=== PATIENT | male | born 1950 | race African-American/Black ===

== ENCOUNTER 2019-04-16 13:16 | Inpatient (IN) | payer OTHER ==
[~2019-04-16] VITALS: Ht 177.8 cm; Wt 64.0 kg
--- NOTE | 2019-04-16 13:16 | NUR ---
PT BIB [facility] DUE TO BLEEDING/LEAKING POSSIBLE DISLODGED PEG TUBE LOCATED TO LUQ OF ABD. PT SENT FOR EVAL FROM [facility]. UPON ARRIVAL PT AAOX3 CONFUSED TO TIME FOLLOWS ALL COMMANDS SLOW TO RESPOND, PER MEDICS AND FACILITY THIS IS NORMAL ORIENTATION AND MENTATION FOR PT. UPON VISUAL ASSESSMENT DRY BLOOD NOTED TO PEG TUBE AREA NO LEAKAGE, PT HAS BRUISING TO L EYE PER PT HE HAD L EYE BIOPSY. PT IS WEARING DIAPER FROM FACILITY SKIN INTACT NO OPEN WOUNDS NOTED. PT GOWNED PLACED ON FULL CM SINUS TACH VSS IV TO L FOREARM ESTABLISHED WITH [facility] EXTENDED 22G SALINE LOCK FLUSHED WITH NO PROBLEM. PT ALSO HAS PICC LINE TO R UPPER ARM INVESTMENT ACCOUNTANT TO ED FLUSHED WITH NO PROBLEM. AWAITING MD EVLYNNETTE AND ORDERS WILL MONITOR.
--- NOTE | 2019-04-16 13:20 | NUR ---
PTS DIAPER REMOVED PERICARE PROVIDED DUE TO WET DIAPER
--- NOTE | 2019-04-16 13:40 | NUR ---
EKG IN PROGRESS. MSE COMPLETED BY DR STAFFORD
[2019-04-16 14:27] LABS: PLATELET COUNT 249 x10^3mcL (130-400); RED CELL DISTRIBUTION WIDTH 14.3 % (11.5-14.5)
--- NOTE | 2019-04-16 14:28 | NUR ---
PT SLEEPING RESTING IN NO DISTRESS REMAINS ON FULL CM PTS BP OF 81/60 REPORTED TO ER MD. AWAITING FURTHER ORDERS
[2019-04-16 15:01] LABS: BAND NEUTROPHIL 9 % (0-10); METAMYELOCTE 2 % (0-2); MONOCYTE 6 % (0-7); SEGMENTED NEUTROPHILS 81 % (37-75)
[2019-04-16 15:03] LABS: PLATELET MORPHOLOGY PLATELETS NORMAL; rbc morphology (normal/abnorm) ABNORMAL (NORMAL)
--- NOTE | 2019-04-16 15:22 | NUR ---
LAB AT BEDSIDE FOR BLOOD CULTURE BLOOD DRAW
--- NOTE | 2019-04-16 15:59 | NUR ---
PT RESTING COMFORTABLY WARM BLANKET PROVIDED PER PTS REQUEST. WILL CONTINUE TO MONITOR VSS SINUS TACH ON CM
--- NOTE | 2019-04-16 16:07 | NUR ---
SPOKE TO PTS SISTER REGARDING PTS STATUS OK PER PT. SISTER LEFT HER NUMBER [phone] ALSO SISTER MARY CALLED HER NUMBER IS [phone]
[2019-04-16] MEDS ORDERED: ASPIR LOW81 MG PO (16:11)
[2019-04-16] MEDS ORDERED: NOR5 PO (16:12)
[2019-04-16] MEDS ORDERED: METFORMIN HCL500 MG PO (16:12)
[2019-04-16] MEDS ORDERED: METHADONE HCL5 MG PO (16:12)
[2019-04-16] MEDS ORDERED: GLIPIZIDE10 M2 PO (16:12)
[2019-04-16] MEDS ORDERED: BENAZEPRIL HYDR20 M1 PO (16:12)
[2019-04-16 16:13] LABS: CALCIUM 9.2 mg/dL (8.5-10.1); CARBON DIOXIDE 28.1 mmol/L (21-32); CHLORIDE SERUM 102 mmol/L (98-107); CREATININE SERUM 0.9 mg/dL (0.7-1.3); GFR1 > 60 mL/min; GLUCOSE SERUM 125 mg/dL (74-106); POTASSIUM SERUM 3.9 mmol/L (3.5-5.1); SODIUM SERUM 138 mmol/L (136-145)
[2019-04-16] MEDS ORDERED: ATORVASTATIN CA40 M1 PO (16:13)
[2019-04-16] MEDS ORDERED: NORCO1 TA2 PO (16:13)
[2019-04-16] MEDS ORDERED: STOOL SOFTENER100 MG PO (16:14)
[2019-04-16 16:18] LABS: ALKALINE PHOSPHATASE 74 U/L (46-116); ALT/SGPT 18 U/L (16-63); AST/SGOT 17 U/L (15-37); BILIRUBIN TOTAL 0.5 mg/dL (0.20-1.00)
[2019-04-16 16:20] LABS: ALBUMIN 2.6 g/dL (3.4-5.0); TOTAL PROTEIN, SERUM 6.1 g/dL (6.4-8.2)
--- NOTE | 2019-04-16 16:35 | NUR ---
PT TRANSPORTED TO TELE FLOOR VIA GURNEY ON PORTABLE CM NO DISTRESS PICC LINE PATENT IV SITE PATENT. TRANSPORTED BY VICKEY LOBO AND PAUL BAIRES. JAMI LOBO RESUMING CARE OF PT
[2019-04-16 17:11] VITALS: BP 99/69
--- NOTE | 2019-04-16 17:34 | NUR ---
RECEIVED PT FROM ER. PT ADMIT FOR INFECTED G TUBE. SEPSIS, PT IS A/O X3, VERY FORGETFUL BUT ABLE TO ANSWER MOST QUESTIONS AND FOLLOW COMMAND. LEFT EYE BLIND RIGHT EYE MINIMAL VISION. YAVAPAI-APACHE BOTH EARS. RIGHT FACIAL MUSCAL CONTRACED. SLURRED SPEECH. LUNG SOUND CLEAR BILATERAL, NO COUGH, NO SOB, PO2 100% 2L/MIN O2 VIA NC. PT IS ON TELE 16, ST, DENY ANY CHEST PAIN OR DISCOMFORT, BOWEL SOUND PRESENT ALL 4 QUADRANTS, NO DISTENTION, NO TENDER. PT HAS G TUBE, THERE ARE DRY DRAINAGE RESIDUAL AROUND THE G TUBE BUT NO ACITVE DRAINAGE NOTED AT THIS MOMENT, PEDLA PULSE PRESENT BOTH FEET, NO EDEMA, IV AT LEFT FA, AND PICC LINE AT RIGHT UPPER ARM, ALL ADLS ASSIST, ALL NEED MET, CALL LIGHT IN REACH, WILL CONTINUE TO MONITOR.
--- NOTE | 2019-04-16 18:00 | NUR ---
RECEIVED REPORT ASSUMING PT CARE RESPONSABILITY.
--- NOTE | 2019-04-16 18:47 | NUR ---
PT RESTING AT THIS TIME. NOTED IV TO LFA INFILTRATED. STOPPED IV. RESOURCE NURSE ASKED TO INSERT NEW IV AT THIS TIME. NO ORDER TO ACCESS PICC LINE AT THIS TIME.
--- NOTE | 2019-04-16 19:45 | NUR ---
RECEIVED AWAKE IN BED ALERT AND ORIENTEDX3 BUT FORGEFUL. BLIND LEFT EYE WITH ECCHYMOSIS, RIGHT EYE WITH LIMITED VISION. NOTED WITH SLURRED SPEECH/RIGHT FACIAK MUSCLE CONTRACTED. NON-BLANCHABLE ERYTHEMA ON THE COCYGEAL AREA, OPTIFOAM DRESSING INTACT. GT SITE WITH DRY DRAIANGE RESIDUAL, GT SITE CLEANSED JEREMY NS AND APPLIED DTAIANGE SPONGE . PLACED CALL LIGHT WITHIN REACH. INSTRUCTED TO CALL FOR ANY ASSISTANCE NEEDED AND VERBALIZED UNDERSTANDING.
--- NOTE | 2019-04-16 21:00 | NUR ---
VANCOMYCI 1GM IVPB GIVEN ORDERED WITHOUT ADVERSE REACTION NOTED. REPOSITIONED FOR COMFORT. BUTH HEELS OFFLOAD BY PLACING PILLOWS UNDER CALF/HEELS, PT UNCOOPERATIVE, KEEPS ON REMOVING EQUIPMENT FOR OFFLUADING.
[2019-04-16 21:03] VITALS: BP 114/64
--- NOTE | 2019-04-17 00:01 | NUR ---
DUE ATB IVPB GIVEN VIA PERIPHERAL LINE. NO ADVERSE REACTION NOTED. WILL CONTINUE TO MONITOR.
[2019-04-17 05:42] VITALS: BP 123/70
[2019-04-17 06:18] LABS: PLATELET COUNT 213 x10^3mcL (130-400)
[2019-04-17 06:22] LABS: CALCIUM 9.5 mg/dL (8.5-10.1); CARBON DIOXIDE 27.5 mmol/L (21-32); CHLORIDE SERUM 104 mmol/L (98-107); CREATININE SERUM 0.8 mg/dL (0.7-1.3); GFR1 > 60 mL/min; GLUCOSE SERUM 131 mg/dL (74-106); POTASSIUM SERUM 5.1 mmol/L (3.5-5.1); SODIUM SERUM 137 mmol/L (136-145)
--- NOTE | 2019-04-17 07:00 | NUR ---
NO ADVERSE REACTION NOTED FROMA TB THERAPY. ALL NEEDS ATTENDED.
[2019-04-17 07:48] LABS: RED CELL DISTRIBUTION WIDTH 14.6 % (11.5-14.5)
[2019-04-17 08:15] VITALS: BP 121/78
--- NOTE | 2019-04-17 08:45 | NUR ---
NOTED NEW ORDER FOR CHUY FROM DOCTOR SOSA'S ORDER.
--- NOTE | 2019-04-17 08:49 | NUR ---
SPOKE TO SLEEP SCIENTIST LLUVIA STATED THAT TO HOLD ALL MEDS GIVEN VIA G TUBE UNTIL IT IS CLEARED TO USE BY DOCTOR SOSA.
--- NOTE | 2019-04-17 09:00 | NUR ---
G TUBE REMOVED BY DOCTOR SOSA AT BEDSIDE ASSISTED BY INTERNAL AUDIT CONSULTANT JANE, NOTED WITH ERYTHEMA TO SITE, PHOTO TAKEN, DRSG APPLIED.
--- NOTE | 2019-04-17 09:30 | NUR ---
PATIENT AGREED TO HAVE NGT PLACEMENT INSERTION. NGT( ENTERIC FEEDING) INSERTED TO RIGHT NARE BY DOCTOR SOSA AT BEDSIDE. NO ANY DISTRESS NOTED.
--- NOTE | 2019-04-17 10:05 | NUR ---
AWAITING FOR KUB FOR NGT PLACEMENT CONFIRMATION.
[2019-04-17 10:55] LABS: BAND NEUTROPHIL 1 % (0-10); MONOCYTE 3 % (0-7); SEGMENTED NEUTROPHILS 91 % (37-75)
[2019-04-17 10:56] LABS: PLATELET MORPHOLOGY PLATELETS DECREASED; rbc morphology (normal/abnorm) ABNORMAL (NORMAL)
--- NOTE | 2019-04-17 11:19 | NUR ---
NOTED KUB RESULT FOR NGT PLACEMENT SHOWS FEEDING TIP IS IN THE DISTAL OF ESOPHAGUS. CHARGE PAULINE MADE AWARE STATED WILL NOTIFY DOCTOR IAN.
[2019-04-17 13:26] VITALS: BP 136/86
--- NOTE | 2019-04-17 14:35 | NUR ---
NGT ADVANCED 10CM BY CHARGE PAULINE PER DOCTOR SOSA'S ORDER. AWAITING FOR KUB RESULT.
--- NOTE | 2019-04-17 15:03 | NUR ---
[place] CATH INSERTED BY LICENSED INSURANCE SALES AGENT ASSISTED BY INSTRUCTOR. URINE SPECIMEN SENT TO LABS.
--- NOTE | 2019-04-17 15:06 | NUR ---
KUB FOR NGT PLACEMENT PENDING RESULT.
[2019-04-17 15:21] LABS: UA SPECIFIC GRAVITY >=1.030 (1.005-1.035); microscopic required? YES; urine erythrocyte TRACE (NEGATIVE)
--- NOTE | 2019-04-17 15:38 | NUR ---
WOUND CARE NOTE: SKIN ASSESSMENT TO S/P SURGICAL WOUND (OLD GT SITE) WITH 0.8X0.8XO.2CM, WOUND BED 100% GRANULATING TISSUE MOIST, NO ODOR DARYA-WOUND SKIN INTACT. SACRALCOCCYX OLD HEALED SCARS. RECOMMENDATIONS: -CLEANSE MID ABDOMINAL SURGICAL SITE WITH NS, PAT DRY AND APPLY DRY DRESSING QD AND PRN IF SOILING. -APPLY OPTIFORM TO SACRALCOCCYX Q3 DAYS AND PRN PREVENTION. -OFFLOAD BILATERAL HEELS BY PLACING PILLOWS UNDER CALVES UNLESS OTHERWISE CONTRAINDICATED -PRESSURE REDISTRIBUTION SURFACE THERAPY -TURN AND REPOSITION Q2H, OFFLOAD SACRALCOCCYX BY TURNING RIGHT AND LEFT -CONTINUE TO FOLLOW RD RECOMMENDATIONS ALL ABOVE RECOMMENDATIONS DISCUSSED WITH PRIMARY RN. PLEASE CONTACT WOUND CARE NURSE FOR ANY QUESTION AND CHANGE OF WOUND CONDITION.
[2019-04-17 16:31] VITALS: BP 100/66
[2019-04-17 17:17] VITALS: Ht 177.8 cm; Wt 64.0 kg
--- NOTE | 2019-04-17 17:18 | NUR ---
REMOVED STYLET FROM NG TUBE SMOOTHLY WITHOUT ANY RESISTANCE, PATIENT TOLERATED WELL WITH PROCEDURE.
--- NOTE | 2019-04-17 18:30 | NUR ---
CONSENT FOR ESOPHAGOGASTRODUODENOSCOPY WITH PEG SIGNED BY PATIENT'S SISTER (VIRGILIO ARROYO) WHO IS AWAKE,ALERT, ORIENTED X4. PATIENT IS UNABLE TO SIGN DUE TO HIS BLINDNESS TO LEFT EYE AND POOR VISION TO RIGHT EYE.
--- NOTE | 2019-04-17 18:57 | NUR ---
[facility] 12., OK TO GIVE VANCO 1GM IV AT 20:00PM TONIGHT PER PHARMACY. WILL ENDORSE TO INCOMING SHIFT.
--- NOTE | 2019-04-17 19:34 | NUR ---
REVEIVED PT WITH HOB ELEVATED AT 30 DEGREES, NGT TO RIGHT NARES INTACT AND PATENT FOR MEDICATIONS, SKIN WARM AND DRY TO TOUCH.ON 02 AT 2L/NC SATURATING AT 100%, DENIES ANY PAIN/DISCOMFORT ATTHIS TIME. CALL LIGHT WITHIN REACH, PT WAS INSTRUCTED TO CALL FOR ANY ASSISTANCE NEEDED.
[2019-04-17 20:53] VITALS: BP 110/69
--- NOTE | 2019-04-18 | NUR ---
ABLE TO TAKE A NAP AT SHORT INTERVALS, DENIES ANY PAIN/DISOCMFORT.
--- NOTE | 2019-04-18 02:00 | NUR ---
DR JAKE CARNES PT WITH ORDER TO DO CT SCAN OF ABDOMEN/PELVIS WITH AND WITHOUT CONTRAST. REMAINS ON NPO EXCEPT MEDICATIONS.
[2019-04-18 05:27] VITALS: BP 96/58
--- NOTE | 2019-04-18 05:28 | NUR ---
ALL DUE MEDICATIONS GIVEN VIA NGT TOLERATING WELL. NO ADVERSE REACTION NOTED. KEPT CLEAN AND DRY. FOR CT SCAN OF ABD/PELVIS R/O ABSCESS PER DR JOSEPH. ALL NEEDS ATTENDED.
[2019-04-18 06:01] LABS: PLATELET COUNT 196 x10^3mcL (130-400); RED CELL DISTRIBUTION WIDTH 13.3 % (11.5-14.5)
[2019-04-18 06:37] LABS: CALCIUM 9.2 mg/dL (8.5-10.1); CARBON DIOXIDE 28.2 mmol/L (21-32); CHLORIDE SERUM 104 mmol/L (98-107); GFR1 > 60 mL/min; GLUCOSE SERUM 106 mg/dL (74-106); POTASSIUM SERUM 4.6 mmol/L (3.5-5.1); SODIUM SERUM 137 mmol/L (136-145)
--- NOTE | 2019-04-18 07:30 | NUR ---
RECEIVED PT FROM VOCATIONAL INSTRUCTOR RN. Donta/BECKA. TELE#16. DENIES CHEST PAIN/PRESSURE. RESPIRATONS EQUAL AND UNLABORED ON 2L NC. DENIES SOB AT THIS TIME. NGT TUBE TO RT NARES SECURED TO NOSE, CLAMPED AT THIS TIME. PT DENIES ANY PAIN AT THIS TIME. [place] CATHETER SECURED TO RT THIGH DRAINING CLEAR YELLOW URINE TO GRAVITY. IV PATENT AND INFUSING TO LW. NO REDNESS OR SWELLING NOTED. WILL CONTINUE TO MONITOR. CALL LIGHT IN REACH. BED IN LOWEST POSITION.
--- NOTE | 2019-04-18 08:31 | NUR ---
SPOKE WITH ROSARIO FROM CT. PT WILL BE TAKEN OFF FLOOR FOR CT OF ABDOMEN AT 1000.
[2019-04-18 08:39] VITALS: BP 107/68
--- NOTE | 2019-04-18 09:20 | NUR ---
PT SITTING UP IN BED RESTING. NO ACUTE RESP DISTRESS NOTED 2L NC. NO ACUTE RESP DISTRESS NOTED. NGT SECURED TO RT NARES, NO RESIDUAL VOLUME NOTED. MEDICATIONS ADMINISTED VIA GRAVITY. PT TOLERATED WELL. IV TO LAC FLUSHED WELL. IV ANTIBIOTICS INFUSING ORDERED. DR. SOSA AT BEDSIDE. PER DR. SOSA OKAY TO START TUBE FEEDINGS AT LUNCH. PER DR. SOSA EGD WITH PEG WILL BE DONE TOMORROW. WILL CONTINUE TO MONITOR. CALL LIGHT IN REACH. BED IN LOWEST POSITION.
--- NOTE | 2019-04-18 09:45 | NUR ---
PT IN BED RESTING. NO ACUTE RESP DISTRESS NOTED ON 2L NC. PT DENIES ANY SOB AT THIS TIME. GIVEN PO MEDS. TOLERATED WELL. PT DENIES N/V AT THIS TIME. PT DENIES AN PAIN AT THIS TIME. IV SALINE LOCKED TO RH. NO REDNESS OR SWELLING NOTED. WILL CONTINUE TO MONITOR. CALL LIGHT IN REACH. BED IN LOWEST POSITION.
--- NOTE | 2019-04-18 09:46 | NUR ---
SPOKE WITH DR. SOSA. PER DR. SOSA HOLD LACTULOSE AND SENNOKOT IF PT STATES HAVING LOOSE STOOLS.
--- NOTE | 2019-04-18 09:57 | NUR ---
PT SALINE LOCKED TO LAC. PT TO BE TAKEN OFF FLOOR FOR CT OF ABDOMEN. [employer]IVE NOTIFIED.
--- NOTE | 2019-04-18 10:43 | NUR ---
PT RECEIVED PT BACK FROM CT ABDOMEN. IV TO LAC FLUSHED WELL. NO REDNESS OR SWELLING NOTED. NO ACUTE RESP DISTRESS NOTED ON 2L NC. WILL CONTINUE TO MONITOR. CALL LIGHT IN REACH. BED IN LOWEST POSITION.
--- NOTE | 2019-04-18 11:13 | NUR ---
SPOKE WITH LLUVIA OPHTHALMIC MEDICAL TECHNOLOGIST REGARDING TUBE FEEDINGS. PER LLUVIA OPHTHALMIC MEDICAL TECHNOLOGIST SHE WILL ADJUST IV FLUIDS ONCE TUBE FEEDINGS START.
--- NOTE | 2019-04-18 12:44 | NUR ---
PT SITTING UP IN BED RESTING COMFORTABLY. O2 SAT WAS CHECKED ON RA. PT 02 SAT WAS 98%. PT DENIES ANY SOB. NO ACUTE RESP DISTRESS NOTED ON RA. MEDICATIONS GIVEN VIA NG TUBE BY GRAVITY. NOTED 30 ML OF RESIDUAL VOLUME. LUNG SOUNDS CLEAR. DRESSING CHANGED TO LEFT UPPER ABDOMEN, DRESSING CDI. CLEANED WITH NS, DRY WITH GAUZE, APPLIED ADAPTIVE, GAUZE AND TAPE. OPTIFOAM DRESSING CHANGED, CLEANSED WITH NS, PAT DRY, APPLIED Z-GUARD, AND OPTIFOAM DRESSING. WILL CONTINUE TO MONITOR. CALL LIGHT IN REACH. BED IN LOWEST POSITION.
[2019-04-18 12:49] VITALS: BP 111/58
--- NOTE | 2019-04-18 13:30 | NUR ---
PT IN BED RESTING. NO ACUTE RESP DISTRESS NOTED ON RA. PT REPOSITIONED SITTING UP IN BED. RESIDUAL VOLUME CHECKED NO RESIDUALS NOTED. TUBE FEEDINGS INITIATED PER ORDER. JEVITY 1.2 RUNNING AT INITIAL RATE OF 20ML/HR WITH FREE WATER FLUSH Q6H. WILL CONTINUE TO MONITOR. CALL LIGHT IN REACH. BED IN LOWEST POSITION.
[2019-04-18 14:10] LABS: MONOCYTE 3 % (0-7); SEGMENTED NEUTROPHILS 92 % (37-75)
[2019-04-18 14:11] LABS: BAND NEUTROPHIL 1 % (0-10); BASOPHIL 0 % (0-2)
[2019-04-18 14:12] LABS: PLATELET MORPHOLOGY PLATELETS NORMAL; rbc morphology (normal/abnorm) NORMAL (NORMAL)
--- NOTE | 2019-04-18 14:47 | NUR ---
SPOKE WITH WIRE INSPECTOR. GAVE INFORMATION REGARDING PT CARE.
--- NOTE | 2019-04-18 14:55 | NUR ---
PT IN BED SLEEPING. NO ACUTE RESP DISTRESS NOTED ON RA. HOB ELEVATED 30 DEGREES. NO RESIDUAL VOLUME NOTED. PT TOLERATING FEEDING WELL. TUBE FEEDINGS RUNNING AT INITIAL RATE OF 20 ML/HR WITH FREE WATER FLUSH Q6HR. IV PATENT AND INFUSING TO RAC. NO REDNESS OR SWELLING NOTED. WILL CONTINUE TO MONITOR. CALL LIGHT IN REACH. BED IN LOWEST POSITION.
--- NOTE | 2019-04-18 15:01 | NUR ---
SPEECH THERAPIST BRENDA AT BEDSIDE. PER BRENDA PT CAN TOLERATE PUREE DIET AND NECKTAR THICK LIQUIDS.
--- NOTE | 2019-04-18 15:06 | NUR ---
PT WAS SEEN FOR DYSPHAGIA. PT WAS ABLE TO SAFELY SWALLOW MS DIET WITH NECTAR THICK LIQUID. PT HAD MILD WET VOICE FOR THINLIQUID. RECOMMENDATION PUREE DIET WITH NECTAR THICK LIQUID. SMALL BITES AND SIPS ONLY. UPRIGHT POSITION.
[2019-04-18 16:19] VITALS: BP 118/62
--- NOTE | 2019-04-18 17:40 | NUR ---
PT SITTING UP IN BED. NO ACUTE RESP DISTRESS NOTED ON RA. NG TUBE SECURED TO RT NARE. NO RESIDUAL VOLUME NOTED. GIVEN MEDICATIONS VIA NG TUBE BY GAVITY. PT TOLERATED WELL. PT CLEANED AND REPOSITIONED. PT DENIES ANY PAIN AT THIS TIME. IV PATENT AND INFUSING TO LAC. NO REDNESS OR SWELLING NOTED. WILL CONTINUE TO MONITOR. CALL LIGHT IN REACH. BED IN LOWEST POSITION.
--- NOTE | 2019-04-18 18:35 | NUR ---
PT SITTTING UP IN BED. NO ACUTE RESP DISTRESS NOTED ON RA. IV PATENT AND INFUSING TO LAC. NO REDNESS OR SWELLING NOTED. PT ASKING TO WEAR PANTS. PT STATES HE HAS BEEN CALLING FOR AN HOUR AND NO ONE HAS HELPED HIM. PT IS INSISTING ON WEARING PANTS. PT REPOSITIONED SITTING UP IN BED. NG TO RT NARE IN PLACE. FEEDINGS RUNNING AT 20 ML/HR. NO RESIDUAL VOLUME NOTED. WILL ENDORSE TO AUTOMATIC FABRIC CUTTER RN. CALL LIGHT IN REACH. BED IN LOWEST POSITION.
--- NOTE | 2019-04-18 19:20 | NUR ---
AOX3. R FACIAL DROOP NOTED. PT HAS POOR VISION BILATERALLY. TELE #16, SR. HR 96. LUNGS DIMINISHED ON RA. DENIES SOB. PULSES PALPABLE. NO EDEMA. BOWEL SOUNDS ACTIVE. PT HAD EPISODE OF WATERY BM, CLEANED AND DRY. NGT TO R NARE PRESENT WITH TUBE FEEDING JEVITY @ 20 ML/HR FWF 50 ML Q6H. RESIDUAL <20 ML, REPLACED. RATE INCREASED TO 30 ML/HR AT THIS TIME. [place] IN PLACE DRAINING YELLOW URINE. ON AIR MATTRESS. OPTIFOAM TO SACRUM, CDI. DRESSING TO LUQ, CDI. PURPLE DISCOLORATION TO L EYE. DENIES PAIN. IV TO LAC, PATENT AND INFUSING. PICC LINE TO RA PRESENT, NOT IN USE. BED IN LOWEST POSITION, 2 SIDE RAILS UP, CALL LIGHT IN REACH. INSTRUCTED TO CALL FOR ASSISTANCE.
[2019-04-18 21:47] VITALS: BP 147/69
--- NOTE | 2019-04-19 01:35 | NUR ---
PT HAD EPISODE OF LARGE WATERY BM. BED BATH GIVEN. LINENS CHANGED. TUBE FEEDING STOPPED FOR PROCEDURE TODAY. NO ACUTE DISTRESS NOTED. BREATHING E/U ON RA. WILL CONTINUE TO MONITOR.
[2019-04-19 05:26] VITALS: BP 139/66
[2019-04-19 06:12] LABS: PLATELET COUNT 241 x10^3mcL (130-400); RED CELL DISTRIBUTION WIDTH 14.5 % (11.5-14.5)
[2019-04-19 06:31] LABS: CALCIUM 9.6 mg/dL (8.5-10.1); CARBON DIOXIDE 29.7 mmol/L (21-32); CHLORIDE SERUM 109 mmol/L (98-107); GFR1 > 60 mL/min; GLUCOSE SERUM 144 mg/dL (74-106); POTASSIUM SERUM 5.1 mmol/L (3.5-5.1); SODIUM SERUM 143 mmol/L (136-145)
--- NOTE | 2019-04-19 06:46 | NUR ---
PT HAD EPISODE OF LOOSE BM. CLEANED/DRY. SITTING UP IN CHAIR. NO ACUTE DISTRESS NOTED. NO ACUTE CHANGES. WILL ENDORSE TO ONCOMING RN.
--- NOTE | 2019-04-19 07:15 | NUR ---
ASSUMED CARE OF PATIENT. SEEN SITTING IN CHAIR THIS AM. ALERT AND ORIENTED X3. S1 S2 SOUNDS NOTED. PULSES PALPABLE BILATERALLY, NO EDEMA NOTED. DIMINISHED LUNG SOUDNS BILATERALLY, ON ROOM AIR. BOWEL SOUDNS ACTIVE IN ALL 4 QUADRANTS. [place] PATENT, DRAINING YELLOW URINE. NO COMPLAINTS OF PAIN. IV ON ON LAC PATENT AND INFUSING D5 1/2. NONSKID SOCKS IN PLACE. WILL CONTINUE TO MONITOR.
--- NOTE | 2019-04-19 08:11 | NUR ---
CRITICAL WBC OF 23.0. SILVER PLATER CARMELA NOTIFIED. NO NEW ORDERS.
--- NOTE | 2019-04-19 08:30 | NUR ---
ALL MEDICATIONS HELD FOR EGD WITH PEG PLACEMENT PROCEDURE AT 1300.
[2019-04-19 09:24] VITALS: BP 119/69
--- NOTE | 2019-04-19 10:26 | NUR ---
SACCRAL WOUND CLEANSED WITH NS AND NEW OPTIFOAM PLACED. ABODMINAL WOUND S/P PEG REMOVAL CLEAN DRY WITH NO REDNESS, SOFT SUGAR SUPERVISOR. PATIENT CLEANED WITH BLAYNE WIPES FOR SURGICAL PREP.
[2019-04-19 12:07] VITALS: BP 132/72; BP 94/56
--- NOTE | 2019-04-19 12:27 | NUR ---
PATIENT SISTER AT BEDSIDE. ORAL CARE PROVIDED. COMPLAINING OF TUGGING ON PENIS BY CATHTER. NEW STAT LOCK PLACED. TO HOLD OFF ON PEG TUBE PLACEMENT TODAY AND OBSERVE FOR TOLERATION OF PUREE DIET WITH NECTAR THICK LIQUIDS TODAY.
--- NOTE | 2019-04-19 13:16 | NUR ---
Initial Nutrition Assessment- 246T/B KASEY PRETTY IA HR Dx: Infected G-tube, sepsis PMHx: not documented PSHx: not documented Labs: BG 144H, WBC 23H Meds: Colace, D10%, Glucophage, Glucotrol, humulin, Lipitor, Pepcid, vancomycin, zosyn Diet: Jevity 1.2 @ 20ml/hr, goal 50 ml/hr, advance q6h, FWF 50ml Q6H TF Intake: 230 ml Ht: 177.8 cm (70") Wt: 60.3 kg (133#) BMI: 19.1 kg/m2 Bedscale: 148.5#(seems inaccurate) IBW: 166# (75 kg) %IBW: 80 UBW: 140# Age: 68/M Food Allergies: NKFA Skin: optifoam to coccyx Lloyd: 13 Edema: none GI: last BM 04/17 Trigger: appears underweight/malnourished, TPN/TF Per H&P, pt is a 68-year old male who was seen and examined in the ER. Patient is a resident of [facility]. Per charge nurse at [facility] patient was noted with gt leakage, in the ER patients GT site noted with some redness with pustule drainage. No reports of any fever at the SNF. When patient arrived in the ER WBC, 34,000, sepsis protocol initiated. RDN visit (04/19): Pt is currently not receiving tube feedings. Per LASHELL Hoffmann, pt was NPO since last night due to possible PEG tube placement today. However APPRENTICESHIP CONSULTANT emilyal cleared the patient for puree diet with nectar thick liquids. Spoke with CANDICE Doyle to place an order for the puree diet. Pt does not have any N/V at this time but has diarrhea. Pt reported weight loss of 10# in 1 month and is willing to consume nutritional supplement. Problem with: N: no V: no D: yes C: no Problems with: Chewing/Swallowing: yes Current appetite: good Recent wt change: 10# in 1 month %wt change: 5% loss Vitamin/Supplement use: B12 shot, MVI during previous hospitalization Special diet at home: regular Physical activity: none as pt had recent hospitalizations. Education: None provided at this time since pt was sleepy. Will be provided during a follow up visit. Food/drug interaction: None at this time Estimated Nutritional Needs Based on actual body weight 60.3 kg Energy: 4051-6966 kcal/d (30-35 kcal/kg- weight gain) Protein: 60-72 g/d (1.0-1.2 g/kg)-maintenance and preservation of lean body mass Fluid: 7421-4114 ml/d (1 ml/kcal-fluid balance) or per doctor Nutrition Diagnosis 1. Unintentional weight loss related to frequent hospitalizations as evidenced by self-reported weight loss of >10# in 1 month. Intervention 1. Recommend puree diet w/nectar thick liquid. 2.Recommend Glucerna BID w/thickener. Monitor/Evaluate Goal: PO intake at least 75% of estimated needs Monitor: PO intake, Labs, GI function F/U in 3-5 days as moderate risk
--- NOTE | 2019-04-19 13:17 | NUR ---
1. Recommend puree diet w/nectar thick liquid. 2.Recommend Glucerna BID w/thickener.
--- NOTE | 2019-04-19 13:45 | NUR ---
NEW DIET ORDER. PATIENT ABLE TO TOLERATE CRUSHED MEDS WITH APPLE SAUCE. AWAITING LUNCH TRAY.
--- NOTE | 2019-04-19 13:54 | NUR ---
3 UNITS REGULAR INSULIN PROVIDED FOR BS 182. PATIENT TOLERATING PO DIET WELL. NO EPISODES OF COUGHING NOTED. PATIETN ABLE TO INDEPENDENTLY EAT.
[2019-04-19 14:24] LABS: BAND NEUTROPHIL 0 % (0-10); BASOPHIL 0 % (0-2); MONOCYTE 6 % (0-7); SEGMENTED NEUTROPHILS 92 % (37-75)
[2019-04-19 14:25] LABS: rbc morphology (normal/abnorm) ABNORMAL (NORMAL)
[2019-04-19 16:01] VITALS: BP 94/59
--- NOTE | 2019-04-19 18:14 | NUR ---
PATIENT TOLERATING DINNER WELL. NO EPISODES OF COUGHING. VOICE DOES NOT SOUND WET. NO ISSUES.
--- NOTE | 2019-04-19 18:43 | NUR ---
PATIENT SEEN RESTING IN BED WITH EVEN AND UNLABORED RESPIRATIONS. NO COMPLAINTS OF SOB. NO COMPLAINTS OF NAUSEA OR VOMITING. WILL ENDORSE CARE TO ONCOMING RN.
--- NOTE | 2019-04-19 20:15 | NUR ---
RECEIVED AWAKE AND VERBALLY RESPONSIVE. ABLE TO MAKE NEEDS KNOWN BUT FORGETFUL AND PERIODS OF CONFUSION. LEFT EYE BLIND WITH ECCHYMOSIS, RIGHT FACIAL DROOP DUE TO CVA. SKIN WARM AND DRY TO TOUCH WITH OPTIFOAM DRESSING TO SACRUM, LUQ DRESSING DRY AND INTACT. DENIES ANY PAIN/DISCOMFORT AT THIS TIME.
[2019-04-19 21:00] VITALS: BP 140/86
--- NOTE | 2019-04-19 22:00 | NUR ---
ALL DUE MEDICATIONS GIVEN PO, ALL PILS CRUSHED AND MIXED WITH APPLE SAUCE. TOLERATING WELL. NO DIFFICULTY OF SWALLOWING NOTED.
--- NOTE | 2019-04-19 23:29 | NUR ---
C/O OF GENERALIZED BODY PAIN ON SCALE 6/10, NOROC 5/325MG GIVEN PO PRN MEDICATION. ASSISTED IN REPOSITIONING FOR COMFORT.
--- NOTE | 2019-04-20 00:25 | NUR ---
FLAGYL PO CRUSHED AND GIVEN WITH APPLESAUCE. ASPIRATION PRECAUTIONS UTILIZED. PT ABLE TO TOLERATE WELL, NO S&S OF CHOKING. CALL LIGHT WITHIN REACH. WILL CONTINUE TO MONITOR
--- NOTE | 2019-04-20 02:00 | NUR ---
GOT OUT OF BED WITHOUT CALLING ASSISTANCE, HIGH RISK FOR FALLS. BED ALERM ON, ASSISTED PT BACK TO BED. INSTRUCTED TO CALL FOR ANY ASSISTANCE NEEDED, BUT NO AVASIL, VERY FORGETFUL. NEEEDS FREQUENT VISUAL CHECK FOR SAFETY.
--- NOTE | 2019-04-20 03:58 | NUR ---
[place] CATH TO BSD WITH YELLOW URINE OUTPUT =1200CC OUT. NO HEMATURIA NOTED. KEPT CLEAN AND DRY.
[2019-04-20 05:03] VITALS: BP 141/74
--- NOTE | 2019-04-20 05:08 | NUR ---
BLOOD SUGAR CHECK 119MG.DL, NO HRI INSULIN COVERAGE. ALL DUE ATB IVPB GIVEN, NO ADVERSE REACTION NOTED. KEPT CLEAN AND DRY. ALL NEEDS ATTENDED.
[2019-04-20 07:11] LABS: CALCIUM 9.4 mg/dL (8.5-10.1); CHLORIDE SERUM 109 mmol/L (98-107); CREATININE SERUM 1.1 mg/dL (0.7-1.3); GFR1 > 60 mL/min; GLUCOSE SERUM 118 mg/dL (74-106); POTASSIUM SERUM 4.5 mmol/L (3.5-5.1); SODIUM SERUM 145 mmol/L (136-145)
[2019-04-20 07:13] LABS: PLATELET COUNT 260 x10^3mcL (130-400); RED CELL DISTRIBUTION WIDTH 14.4 % (11.5-14.5)
--- NOTE | 2019-04-20 07:25 | NUR ---
ASSUMED CARE OF PATIENT. ALERT AND ORIENTED X3. S1 S2 SOUNDS NOTED. PULSES PALPABLE BILATERALLY, NO EDEMA NOTED. LUNG SOUNDS DIMINISHED BILATERALLY, ON ROOM AIR. BOWEL SOUNDS ACTIVE IN ALL 4 QUADRANTS. [place] INTACT, DRAINING YELLOW URINE. GENERALIZED WEAKNESS, UNSTEADY GAIT, BED ALARM ON. OPTIFOAM IN PLACE ON SACRUM, LUQ DRESSING CDI, LEFT EYE ECCHYMOSIS. NO CMOPLAINTS OF PAIN. IV ON LAC PATENT AND INFUSING. NONSKID SOCKS IN PLACE. BED LOCKED AND IN LOWEST POSITION. WILL CONITNUE TO MONITOR.
--- NOTE | 2019-04-20 10:00 | NUR ---
PATIENT TAKEN FOR HIDA SCAN.
[2019-04-20 10:20] LABS: BAND NEUTROPHIL 0 % (0-10); BASOPHIL 0 % (0-2)
[2019-04-20 10:21] LABS: MONOCYTE 7 % (0-7); SEGMENTED NEUTROPHILS 85 % (37-75)
[2019-04-20 10:23] LABS: PLATELET MORPHOLOGY PLATELETS NORMAL
[2019-04-20 12:29] VITALS: BP 126/80
--- NOTE | 2019-04-20 12:31 | NUR ---
PATIENT RETURN FROM HIDA SCAN. PLACED BACK ON FLUIDS AND POSITIONED IN CHAIR FOR LUNCH. NO NEW ISSUES.
--- NOTE | 2019-04-20 13:36 | NUR ---
TOLERATING DIET WELL. REQUIRES ASSISTANCE WITH EATING DUE TO BLINDNESS.
--- NOTE | 2019-04-20 15:34 | NUR ---
PATIENT WITH FAMILY AT BEDSIDE. UPDATED FAMILY ON PATIENT STATUS.
--- NOTE | 2019-04-20 17:47 | NUR ---
METFORMIN REINITIATED PROTOCOL. HAS BEEN MORE THAN [address] WITH CONTRAST ON 04/18 AT 1000. PATIENT REFUSED INSULIN DUE TO RECIEVING METFORMIN TODAY.
--- NOTE | 2019-04-20 18:37 | NUR ---
SACCRAL ULCER CLEANED WITH NS AND NEW OPTIFOAM PLACED. WOUND S/P GTUBE REMOVAL ON LUQ HAD DRY SCAB THAT FELL OFF WITH CLEANING. NEW DRESSING APPLIED.
--- NOTE | 2019-04-20 19:00 | NUR ---
PATIENT IN BED WITH UNLABORED AND EQUAL RESPIRATIONS. NO COMPLAINTS OF N/V. WILL ENDORSE TO ONCOMING RN.
--- NOTE | 2019-04-20 19:40 | NUR ---
RECEIVED PT FROM AM SHIFT, PT IS A/O X3, FORGETFUL. RIGHT FACIAL CONTRACTED, LEFT EYE BLIND, AND RIGHT EYE POOR VISION. LUNG SOUND DIM BHUPINDER, DENY ANY SOB, PT IS ON TELE 16, ST, DENY ANY CHEST PAIN OR DISCOMFORT, BOWEL SOUND PRESENT ALL 4 QUADRANTS, NO DISTENTION, NO TENDER. PEDAL PULSE PRESENT BOTH FEET, NO EDEMA, IV AT LEFT AC, NO LEAKING, NO INFILTRATION. ALL ADLS ASSIST, ALL NEED MET, CALL LIGHT IN REACH, WILL CONTINUE TO MONITOR.
[2019-04-20 21:52] VITALS: BP 147/88
--- NOTE | 2019-04-20 23:21 | NUR ---
RECEIVED LASHELL TREVINO. NO ACUTE DISTRESS OBSERVED, LAYING IN BED, ASLEEP, BREATHING EVEN AND UNLABORED. COMFORT AND SAFETY MEASURES IN PLACE. CALL LIGHT WITHIN REACH. WILL CONTINUE TO MONITOR
[2019-04-21 05:23] VITALS: BP 150/82
--- NOTE | 2019-04-21 05:30 | NUR ---
FLAGYL PO CRUSHED AND GIVEN WITH JELLO. ASPIRATION PRECAUTIONS UTILIZED. PT ABLE TO TOLERATE VERY WELL WITHOUT S&S OF CHOKING. CALL LIGHT WITHIN REACH. WILL CONTINUE TO MONITOR
--- NOTE | 2019-04-21 05:47 | NUR ---
NO SIGNIFICANT CHANGES TO REPORT. PT COMPLIED WITH NURSING CARE THROUGHOUT THE SHIFT WITH NO ACUTE EVENTS OVERNIGHT. NO ACUTE DISTRESS OBSERVED AT THIS TIME. PT LAYING IN BED, BREATHING EVEN AND UNLABORED. EASILY AROUSABLE TO VERBAL STIMULI. COMFORT AND SAFETY MEASURES MAINTAINED. ALL NEEDS ASSESSED AND ATTENDED TO. CALL LIGHT WITHIN REACH. WILL CONTINUE TO MONITOR AND ENDORSE CARE TO DAY SHIFT NURSE
[2019-04-21 06:50] LABS: CALCIUM 9.6 mg/dL (8.5-10.1); CARBON DIOXIDE 29.9 mmol/L (21-32); CHLORIDE SERUM 109 mmol/L (98-107); GFR1 > 60 mL/min; GLUCOSE SERUM 76 mg/dL (74-106); POTASSIUM SERUM 3.6 mmol/L (3.5-5.1); SODIUM SERUM 147 mmol/L (136-145)
[2019-04-21 07:10] LABS: BASOPHIL % 0.1 % (0-2); PLATELET COUNT 306 x10^3mcL (130-400)
--- NOTE | 2019-04-21 07:42 | NUR ---
RECEIVED AWAKE, FOLLOWS COMMANDS. NO ACUTE RESP. DISTRESS NOTED. NO C/O PAIN OR DISCOMFORT. IVF INFUSING WELL AND SITE CLEAR. CALL LIGHT WITHIN REACH. WILL CONTINUE WITH PLAN OF CARE.
[2019-04-21 09:55] VITALS: BP 151/77
--- NOTE | 2019-04-21 13:59 | NUR ---
SITTING ON A CHAIR IN NO DISTRESS. AWAKE AND ALERT. NO C/O PAIN AT THIS TIME.
--- NOTE | 2019-04-21 14:00 | NUR ---
SACRAL AREA CLEANED WITH NS AND PATTED DRY. Z-GUARD APPLIED, COVERED WITH OPTOFORM. PERICARE DONE. PT TOLERATED WELL.
--- NOTE | 2019-04-21 14:30 | NUR ---
C/O HEADACHE, MEDICATED WITH TYLENOL.
[2019-04-21 17:33] VITALS: BP 122/74
--- NOTE | 2019-04-21 18:40 | NUR ---
REMAINS IN NO DISTRESS. AWAKE AND ALERT. NO CHANGES IN VS. NO C/O PAIN OR DISCOMFORT AT THIS TIME. IVF INFUSING WELL AND SITE CLEAR. CALL LIGHT WITHIN REACH. WILL BE ENDORSED TO INCOMING SHIFT.
--- NOTE | 2019-04-21 19:55 | NUR ---
AWAKE SITTING UP IN CHAIR. SKINW ARM AND DRY TO TOUCH. RESPIRATION EVEN AND UNLABORED. CONFUSED AND DISORIENTED. RIGHT UPPER ARM , PICC LINE INTACT UNACCESSED. IV SITE LAC INTACT AND PATENT. [place] CATH TO BSD WITH YELLOW URINE.
[2019-04-21 20:39] VITALS: BP 128/71
--- NOTE | 2019-04-21 21:37 | NUR ---
BS . D10 INITIATED. DR. SOLORZANO MADE AWARE. IVF NS @ 50 ML/HR, OK TO LEAVE IVF AT CURRENT RATE S/P D10 AND JUST MONITOR BLOOD SUGARS.
--- NOTE | 2019-04-21 22:30 | NUR ---
BLOOD SUGAR CHECK 90MG/DL, PUDDING/APPLE SACUE WELL TOLERATED. NO S/S OF GLYCEMIC REACTION.
--- NOTE | 2019-04-21 23:00 | NUR ---
ALL DUE MEDICATIONS GIVEN ORDERED. NO NAUSEA/VOMTING NOTED.
--- NOTE | 2019-04-22 00:01 | NUR ---
EYES CLOSED, NOF ACIAL GRIMACING NOTED. RESPRIATIONE APRIL AND UNLABORED. ASLLE SOUNDLY. CALL LIGHT WITHINR EACH.
--- NOTE | 2019-04-22 03:00 | NUR ---
INCOTNINENT OF BLOWEL FUNCTION. HAND X1 BM BROWNISH STOOL FORMED IN LARGE AMOUNT. KEPT CLEAN AND DRY.
--- NOTE | 2019-04-22 05:05 | NUR ---
BLOOD SUGAR=18/16, PT ALERT AT THIS TIME, RESPONSIVE TO VERBAL STIMULI, D10 [address] HOPE MADE AWARE. LEAVE PT TO HAVE NS AT 50ML/HR , MD WILL REASSESS HYPOGLYCEMIC ORAL MEDICATIONS. WILL CONTINUE TO MONITOR..
[2019-04-22 06:03] VITALS: BP 106/71
--- NOTE | 2019-04-22 06:32 | NUR ---
BLOOD SUGAR=75MG/DL, APPLE SAUCE/VANILLA PUDDING GIVEN AND WELL TOLERATED. NO S/S OF ASPIRATION NOTED. KEPT CLEAN AND DRY.
[2019-04-22 07:26] LABS: CARBON DIOXIDE 38.7 mmol/L (21-32); CHLORIDE SERUM 107 mmol/L (98-107); GFR1 > 60 mL/min; GLUCOSE SERUM 79 mg/dL (74-106); POTASSIUM SERUM 3.6 mmol/L (3.5-5.1); SODIUM SERUM 146 mmol/L (136-145)
--- NOTE | 2019-04-22 07:29 | NUR ---
RECEIVED IN NO DISTRESS. AWAKE AND ALERT. NO C/O PAIN OR DISCOMFORT. IVF INFUSING WELL AND SITE CLEAR. CALL LIGHT WITHIN REACH. WILL CONTINUE WITH PLAN OF CARE.
[2019-04-22 07:30] LABS: PLATELET COUNT 295 x10^3mcL (130-400)
[2019-04-22 07:57] LABS: BASOPHIL % 0 % (0-2); RED CELL DISTRIBUTION WIDTH 15.1 % (11.5-14.5)
[2019-04-22 09:07] VITALS: BP 124/66
--- NOTE | 2019-04-22 12:12 | NUR ---
BLOOD SUGAR NOTED 40, REPEATED AND IS 41. PT ASYMPTOMATIC. AWAKE, ALERT AND ORIENTED. ORANGE JUICE WITH 2PKS OF SUGAR GIVEN AND PT TOLERATED WELL. NO DISTRESS NOTED. WILL RECHECK AND CONTINUE MONITORING. CANDICE BATRES WILL BE NOTIFIED.
--- NOTE | 2019-04-22 12:35 | NUR ---
BLOOD SUGAR RECHECKED AND IS 53.PT ASYMPTOMATIC, D10% STARTED AND INFUSING WELL. SURGICAL FIRST ASSISTANT CARMELA BATRES NOTIFIED. WILL CONTINUE TO MONITOR.
--- NOTE | 2019-04-22 13:25 | NUR ---
GLU NOW 144. PT RESTING IN NO DISTRESS. DENIES ANY DISCOMFORT.
[2019-04-22 16:38] VITALS: BP 107/66
--- NOTE | 2019-04-22 18:45 | NUR ---
DRESSING TO GTUBE CHANGED, SITE CLEANED WITH WARM WATER AND SOAP AND DRY DRESSING APPLIED. NO DRAINAGE NOTED. PT REMAINS WIN NO DISTRESS. RESTING IN BED. NO CHANGES IN VS. NO C/O PAIN OR DISCOMFORT. CALL LIGHT WITHIN REACH. WILL BE ENDORSED TO INCOMING SHIFT.
--- NOTE | 2019-04-22 20:00 | NUR ---
RECEIVED PT IN BED, RESTING QUIETLY IN BED. HX OF CVA, WITH RT FACIAL DROOP AND GARBLED SPEECH. ABLE TO FOLLOW SOME SIMPLE COMMANDS. NO TELE. DENIES CP OR ANY DISCOMFORT AT THIS TIME. RESP. EVEN AND UNLABORED. ON ROOM AIR, NO ACUTE DISTRESS NOTED. DRESSING TO GT SITE DRY AND INTACT. REDNESS TO SACRAL AREA , OPTIFOAM IN PLACE. TURNEDAND REPOSITIONED FOR COMFORT. MU[place] CATH INTACT AND DRAINING YELLOW COLOR URINE. PICC LINE TO RA, SITE DRESSING DRY AND INTACT. IVF , NS AT 50ML/HR, INFUSING VIA LAC, SITE CLEAR.CALL LIGHT WITHIN REACH. WILL CONTINUE TO MONITOR.
[2019-04-22 20:55] VITALS: BP 114/70
--- NOTE | 2019-04-22 22:05 | NUR ---
BLOOD SUGAR READING SHOWS 44, AND REPEATED 44. IV D10 250ML, INFUSING AT THIS TIME. ASYMPTOMATIC . PT DENIES ANY DISCOMFORT. WILL CONTINUE CONTINUE TO MONITOR.
--- NOTE | 2019-04-22 22:30 | NUR ---
BLOOD SUGAR RECHECK SHOWS 102. WILL CONTINUE TO MONITOR.
[2019-04-23] VITALS (17 sets, daily range): BP systolic 74–182; BP diastolic 7–101
--- NOTE | 2019-04-23 01:00 | NUR ---
NO COMPLAINTS NOTED AT THIS TIME. RESTING QUIETLY IN BED, APPEARS ASLEEP, EASILY AROUSABLE. RESP. EVEN AND UNLABORED. NO ACUTE DISTRESS NOTED. WILL CONTINUE TO MONITOR.
--- NOTE | 2019-04-23 05:20 | NUR ---
FOUND PT UN RESPONSIVE, NO VERBAL RESPONSE.UNABLE TO AROUSE PT. BUT PULSE THREADING AND VERY FAINT.BLOOD SUGAR CHECKED AND , SHOWS LOW ON THE GLUCOMETER. AMP. OF D50 IVP GIVEN STAT.CODE BLUE CALLED . REPEAT SHOWS 118. ORDER RECEIVED FROM DR DUPREE TO GIVE ANOTHER AMP. OF D50 IVP. PT WAS INTUBATED AND TRANSFERRED TO ICU BED 3. VIA BED WITH PT MAXIME.REPORT GIVEN TO FACILITY SECURITY OFFICER.
--- NOTE | 2019-04-23 05:50 | NUR ---
RECEIVED PT FROM . PT TRANSFERRED TO ICU BED 3 WITH NO COMPLICATIONS. PT CONNECTED TO FULL FENCE POST CUTTER, VITALS READING: HR 122, RR 13, SPO2 100%, TEMP 97.4, BP 170/102, MAP 128. PT IS INTUBATED AND ON NO SEDATION. PT IS UNRESPONSIVE AT THIS TIME. PUPILS WITH SLUGGISH RESPONSE TO LIGHT, 4 MM BILAT. GAG REFLEX PRESENT. 7.5 ETT, 26 CM @ LL. TRACHEA MIDLINE. NO JVD NOTED. ETT CONNECTED TO VENT, VENT SETTINGS: VCV/AC MODE, RATE 13, VT 420, O2 60%, PEEP 5. LUNGS SOUND CLEAR TO BUE AND DIMIN TO BLL. SYMMETRICAL CHEST EXPANSION NOTED. S1/S2 HEART SOUNDS AUSCULTATED. CHEST WALL EQUAL AND SYMMETRICAL. PALPABLE PULSES X4 EXTREMITIES. SKIN IS WARM AND DRY. CAP REFILL < 3 SECS. NO EDEMA NOTED. PICC LINE NOTED TO RUE WITH DRESSING CDI. ABD IS SOFT, ROUND, NONTENDER TO PALPATION. BOWEL SOUNDS ACTIVE X 4 QUADRANTS. PREVIOUS G-TUBE SITE WITH ISLAND DRESSING CDI AND IN PLACE. [place] INTACT/SECURED, DRAINING VIA GRAVITY WITH YELLOW COLORED URINE NOTED. ERYTHEMA NOTED TO SACRAL AREA WITH OPTIFOAM IN PLACE. BED IN LOW POSITION. CALL LIGHT IN REACH. WILL CONT TO MONITOR.
[2019-04-23 06:11] LABS: BASOPHIL % 0.1 % (0-2); PLATELET COUNT 330 x10^3mcL (130-400)
--- NOTE | 2019-04-23 06:23 | NUR ---
PT RESPONDS TO PAINFUL STIMULI. PROPOFOL INITIATED AT THIS TIME @ 5 MCG/KG/MIN. WILL CONT TO MONITOR
--- NOTE | 2019-04-23 06:25 | NUR ---
UNABLE TO CONTACT FAMILY REGARDING PT TRANSFER. CALLED PHONE NUMBER IN CHART NO ANSWER
--- NOTE | 2019-04-23 06:28 | NUR ---
X-RAY TECH AT BEDSIDE FOR ETT AND OGT CONFIRMATION. AWAITING RESULTS.
[2019-04-23 06:34] LABS: CALCIUM 9.9 mg/dL (8.5-10.1); CHLORIDE SERUM 103 mmol/L (98-107); CREATININE SERUM 0.9 mg/dL (0.7-1.3); GFR1 > 60 mL/min; POTASSIUM SERUM 3.2 mmol/L (3.5-5.1); SODIUM SERUM 145 mmol/L (136-145)
--- NOTE | 2019-04-23 06:43 | NUR ---
22 GAUGE IV INSERTED TO LEFT WRIST BY MAG LOBO. IV FLUSHED 10 ML OF NS WITH NO S/S OF INFILTRATION NOTED.
[2019-04-23 06:53] LABS: GLUCOSE SERUM 10 mg/dL (74-106)
--- NOTE | 2019-04-23 07:08 | NUR ---
REPORT GIVEN TO DENIS LOBO FOR CONTINUITY OF CARE
[2019-04-23 07:22] LABS: RED CELL DISTRIBUTION WIDTH 14.9 % (11.5-14.5)
--- NOTE | 2019-04-23 09:13 | NUR ---
PER RT, FIO2 LOWERED TO 35%. PATIENT STABLE, WILL CONTINUE TO MONITOR.
--- NOTE | 2019-04-23 09:26 | NUR ---
DR MONROY AT BEDSIDE, ALL UPDATES PROVIDED.
--- NOTE | 2019-04-23 09:40 | NUR ---
LEFT WRIST IV INFILTRATED. NEW IV APPLIED TO LAC. LAC INTACT AND PATENT WITH 20 GAUGE.
--- NOTE | 2019-04-23 10:00 | NUR ---
SEDATION VACATION AT THIS TIME. PATIENT STABLE, WILL CONTINUE TO MONITOR.
--- NOTE | 2019-04-23 10:42 | NUR ---
BLOOD SUGAR CHECKED FOR PATIENT. FIRST BLOOD SUGAR: 22, SECOND: 17. ROOM SERVICE SUPERVISOR LLUVIA NOTIFIED. PER LLUVIA, START THE FLUIDS THAT HAVE BEEN ORDERED. FLUIDS STARTED AND ORANGE JUICE AND SUGAR GIVEN THROUGH OGT. WILL REASSESS PATIENT IN 15 MINS, AND CONTINUE TO MONITOR.
--- NOTE | 2019-04-23 11:21 | NUR ---
BLOOD SUGAR RECHECKED. FIRST BLOOD SUGAR: 32, SECOND BLOOD SUGAR: 28. CANDICE TEIXEIRA PAGED, AND 1 CUP OF ORANGE WITH SUGAR GIVEN, THROUGH OGT. WILL CONTINUE TO MONITOR AND REASSESS IN 15 MIN.
--- NOTE | 2019-04-23 12:29 | NUR ---
TF GLUCERNA INITIATED AT 10ML/HR WITH FWF OF 100 ML/HR Q 4 HR. HOB ELEVATED 30 DEGREES. PRIMARY RN MADE AWARE.
--- NOTE | 2019-04-23 12:43 | NUR ---
EMERGENCY VETERINARY ASSISTANT CARMELA AT BEDSIDE SPEAKING WITH PT'S SISTER AND PROVIDING HER WITH UPDATES AND CURRENT PLAN OF CARE.
--- NOTE | 2019-04-23 12:51 | NUR ---
PATIENTS BLOOD SUGAR RECHECKED. FIRST SUGAR: 48, SECOND SUGAR: 52. FACILITIES ADMINISTRATOR LLUVIA NOTIFIED. SHE WOULD LIKE TO RESUME WITH THE SAME FLUIDS, AND NO FURTHER ORDERS AT THIS TIME.
--- NOTE | 2019-04-23 12:55 | NUR ---
Follow-up Nutrition Assessment: IC03/A KASEY PRETTY MR Dx: Infected G-tube, sepsis PMHx: not documented Labs: (04/23) K 3.2L, BG 10L, WBC 14.6H, Meds: Colace, D10%, humulin, Lipitor, lotensin, pecid, heparin Diet: Glucerna 1.2 @ 30ml/hr, goal 60ml/hr, advance Q4H, (04/23 morning): NPO (intubated), (04/19-): puree diet. FWF 100ml PO Intake: 100% (puree diet) Weights: 60 kg Skin: island dressing to GT site, redness to sacral area Lloyd: 13 I/Os: (04/23) 2730/4250 (-1520) Edema: none GI: Last BM: 04/21 Per progress note (04/23): Now in the ICU around 0600 patient was found unresponsive with unreable glucose, patient orally intubated and placed on ventilator for airway protection. RDN visit (04/23): patient was intubated and was on ventilator. Patient was not receiving any tube feedings but now has a tube feeding order. Per RN Maury, plan is to start tube feedings soon. Pt did not have any family at bedside. Estimated Nutritional Needs Based on actual body weight 60.3 kg Energy: 1721-6076 vs 1432 kcal/d (30-35 kcal/kg vs Abiel State Equation (PSU) 2003b ) Protein: 60-72 g/d (1.0-1.2 g/kg)-maintenance and preservation of lean body mass Fluid: 5350-8014 ml/d (1 ml/kcal-fluid balance) or per doctor Nutrition Diagnosis 1. Unintentional weight loss related to frequent hospitalizations as evidenced by self-reported weight loss of >10# in 1 month. (ongoing) Intervention 1. Recommend continuing Glucerna 1.2 @ 30ml/hr, goal 60ml/hr, advance 10ml Q4H. FWF 100ml Q6H. Goal rate will provide 1728 kcal and 86g protein. This meet >75% of estimated calorie and protein needs. Monitor/Evaluate Goal: Have pt meet at least 75% of estimated needs (not met) Monitor: TF intake/tolerance, Labs, GI function F/U in 2-3 days as high risk 04/25-
--- NOTE | 2019-04-23 13:40 | NUR ---
VENT ALARMING LOW VOLUME, PT NOTED TO BE BITING ETT. PT ENCOURAGED BY MYSELF AND FAMILY TO NOT BITE ETT. PROPOFOL RESTARTED AT 5 MCG/KG/MIN. WILL CONT TO MONITOR. PRIMARY RN AWARE.
--- NOTE | 2019-04-23 14:26 | NUR ---
BLOOD SUGAR CHECKED 48 AND REPEATED 52 PER PRIMARY RN. MOLDER HELPER CARMELA PAGED AND MADE AWARE. NEW ORDERS RECIEVED TO INCREASE D10 TO 60 ML/HR. ORDER READBACK AND CONFIRMED. PRIMARY RN NOTIFIED.
--- NOTE | 2019-04-23 14:46 | NUR ---
PATIENTS BP: 78/49 MAP:58, LLUVIA, ANIMAL BEHAVIORIST PAGED.
--- NOTE | 2019-04-23 14:55 | NUR ---
RECIEVED CALL FROM DR. MONROY AND UPDATED HER ON PT'S CURRENT STATUS OF HYPOGLYCEMIA AND HYPOTENSION. NEW ORDERS RECIEVED TO INCREASE TF TO 35ML/HR, D/C TORODOL, ADMINISTER NS 500ML BOLUS AND OBTAIN CENTRAL LINE CONSENT. ALL ORDERS REBACK AND CONFIRMED. PRIMARY RN AWARE OF THE ABOVE.
--- NOTE | 2019-04-23 15:06 | NUR ---
SPOKE WITH PT'S SISTER, CY, AT BEDSIDE AND INFORMED HER OF INDICATION FOR CENTRAL LINE INSERTION. ALL RISK AND BENEFITS OF CENTRAL LINE EXPLAINED WITH OPPORTUNITY FOR PT'S SISTER TO ASK QUESTIONS. ALL QUESTIONS ADDRESSED. OBTAINED SIGNED CONSENT AT THIS TIME FOR CENTRAL LINE. PRIMARY RN AWARE OF THE ABOVE.
--- NOTE | 2019-04-23 15:58 | NUR ---
500ML NS BOLUS COMPLETED AT THIS TIME WITH NIBP REASSESSED AT 126/69 MAP 95. WILL CONT TO MONITOR.
--- NOTE | 2019-04-23 16:13 | NUR ---
BLOOD SUGAR SPOT CHECKED NOTED AT 44, ORANGE JUICE WITH 2 PACKETS SUGAR GIVEN. WILL REASSESS.
--- NOTE | 2019-04-23 16:55 | NUR ---
CENTRAL LINE TIMEOUT DONE AT THIS TIME WITH DR MONROY AND MILK DRYING MACHINE OPERATOR. PER DR MONROY, SEDATION TO BE STARTED. PROPOFOL INFUSING AT THIS TIME. PROPOFOL: 5 MCG/KG/MIN.
--- NOTE | 2019-04-23 17:12 | NUR ---
DR. SOSA AT BEDSIDE TO SEE PT, UPDATES PROVIDED. DR. SOSA AWARE OF REPEATED HYPOGLYCEMIA. PER DR. SOSA ONCE CURRENT TF BOTTLE OF GLUCERNA IS COMPLETED CHANGE FORMULA TO JEVITY.
[2019-04-23 18:05] LABS: BILIRUBIN DIRECT 0.08 mg/dL (0.0-0.2); BILIRUBIN TOTAL 0.2 mg/dL (0.20-1.00); TOTAL PROTEIN, SERUM 7.2 g/dL (6.4-8.2)
[2019-04-23 18:06] LABS: ALBUMIN 2.6 g/dL (3.4-5.0)
--- NOTE | 2019-04-23 18:45 | NUR ---
CVP INITIATED AT THIS TIME. CVP: 8.
--- NOTE | 2019-04-23 19:11 | NUR ---
RECEIVED REPORT FROM DENIS LOBO. ASSUMING ALL CARE
--- NOTE | 2019-04-23 19:11 | NUR ---
REPORT GIVEN TO LASHELL BERNARDO. ALL QUESTIONS ANSWERED.
--- NOTE | 2019-04-23 19:22 | NUR ---
RECEIVED PT LAYING IN BED. PT IS INTUBATED AND SEDATED ON PROPOFOL @ 5 MCG/KG/MIN. PT OPENS EYES TO PAINFUL STIMULI. RSS=5. PUPILS WITH SLUGGISH RESPONSE TO LIGHT 4 MM. GAG REFLEX PRESENT. NOT ABLE TO FOLLOW COMMANDS AT THIS TIME. 7.5 ETT, 26 CM @ LL INTACT/SECURED. RIJ CVC IN PLACE, ALL PORTS PATENT, DRESSING CDI. OGT IN PLACE. TRACHEA MIDLINE. DRY ORAL MUCOSA, ORAL CARE PROVIDED PER VAP PROTOCOL. BREATHING IS E/U ON VENT. VENT SETTINGS: VCV AC MODE, RATE 13, VT 420, PEEP 5, FIO2 35%.. LUNGS SOUND CLEAR TO BUL AND DIMIN TO BLL. SYMMETRICAL CHEST EXPANSION NOTED. S1/S2 HEART SOUNDS AUSCULTATED. CHEST WALL EQUAL AND SYMMETRICAL. NO S/S OF CP NOTED. HR 90, BP 111/63, MAP 79. CVP=8. PALPABLE PULSES X4 EXTREMITIES. SKIN IS COOL AND DRY. CAP REFILL < 3 SECS. NO EDEMA NOTED. D10 INFUSING @ 60 ML/HR. RUE PICC LINE REMAINS IN PLACE, SALINE LOCKED. PT ON BEDREST. GENERALIZED WEAKNESS. NO JOINT SWELLING/DEFORMITY NOTED. PT ON ISOGEL MATTRESS. PT ON GLUCERNA @ 35 ML/HR WITH 100 CC FWF Q4H. GRV=0, TOLERATING WELL. NO N/V NOTED. ABD IS SOFT, ROUND, NONTENDER TO PALPATION. BOWEL SOUNDS ACTIVE X4 QUADRANTS. NO BM NOTED. PT WITH [place] INTACT/SECURED DRAINING VIA GRAVITY WITH YELLOW COLORED URINE. NO SCROTAL EDEMA NOTED. OPEN WOUND NOTED TO SACRAL AREA WITH OPTIFOAM IN PLACE. PREVIOUS G-TUBE SITE WITH ISLAND DRESSING IN PLACE WITH DRESSING CDI. LEFT EYE PURPLE DISCOLORATION NOTED. PT REPOSITIONED Q2H AND PRN FOR COMFORT. FAMILY AT BEDSIDE. BED IN LOW POSITION. CALL LIGHT IN REACH. WILL CONT TO MONITOR
--- NOTE | 2019-04-23 20:15 | NUR ---
BLOOD SUGAR NOTED TO BE 59. REPEAT BLOOD SUGAR NOTED TO BE 62. ADMINISTERED ORANGE JUICE WITH 2 PACKS OF SUGAR VIA OGT. WILL CONT TO MONITOR.
--- NOTE | 2019-04-23 20:30 | NUR ---
GRV=0. GLUCERNA TF INCREASED TO 45 ML/HR WITH 100 CC FWF Q4H
--- NOTE | 2019-04-23 20:50 | NUR ---
BS RECHECKED POST ORANGE JUICE ADMINISTRATION. BS NOTED TO BE 83. WILL CONT TO MONITOR.
[2019-04-24] VITALS (17 sets, daily range): BP systolic 105–170; BP diastolic 59–97
--- NOTE | 2019-04-24 00:30 | NUR ---
GRV=0. GLUCERNA TF INCREASED TO 55 ML/HR WITH 100 CC FWF Q4H
--- NOTE | 2019-04-24 01:39 | NUR ---
RT BERKOWITZ AT BEDSIDE. FIO2 TITRATED TO 30%. PT'S CURRENT O2 SATURATION 100%. WILL CONT TO MONITOR.
--- NOTE | 2019-04-24 03:00 | NUR ---
PT'S AXILLARY TEMP 100.4. COOLING MEASURES IN PLACE. PT MEDICATED WITH TYLENOL PER EMAR. WILL CONT TO MONITOR.
--- NOTE | 2019-04-24 04:00 | NUR ---
TEMP POST TYLENOL ADMINISTRATION, 99.5. COOLING MEASURES REMAIN IN PLACE. WILL CONT TO MONITOR
--- NOTE | 2019-04-24 04:45 | NUR ---
GRV=0. GLUCERNA TUBE FEED INCREASED TO GOAL @ 60 ML/HR WITH 100 CC FWF Q4H.
--- NOTE | 2019-04-24 05:15 | NUR ---
BRENDONE PICC LINE REMOVED AT THIS TIME AND SENT TO LAB FOR CULTURE.
[2019-04-24 05:23] LABS: BASOPHIL % 1.2 % (0-2); CALCIUM 8.5 mg/dL (8.5-10.1); CARBON DIOXIDE 32.6 mmol/L (21-32); CHLORIDE SERUM 101 mmol/L (98-107); CREATININE SERUM 0.9 mg/dL (0.7-1.3); GFR1 > 60 mL/min; GLUCOSE SERUM 80 mg/dL (74-106); PLATELET COUNT 274 x10^3mcL (130-400); POTASSIUM SERUM 3.3 mmol/L (3.5-5.1); SODIUM SERUM 139 mmol/L (136-145)
[2019-04-24 05:24] LABS: RED CELL DISTRIBUTION WIDTH 15.8 % (11.5-14.5)
--- NOTE | 2019-04-24 05:42 | NUR ---
FULL BED BATH PROVIDED. GOWN AND LINENS CHANGED. PERICARE, MUHAMMAD, AND ORAL CARE PROVIDED. HEEL PROTECTORS IN PLACE. HOB ELEVATED 30 DEGREES ALONG WITH BLE ELEVATED ON PILLOWS. BED IN LOW POSITION. CALL LIGHT IN REACH. WILL CONT TO MONITOR
--- NOTE | 2019-04-24 07:05 | NUR ---
REPORT GIVEN TO ZIGGY LOBO FOR CONTINUITY OF CARE. ALL QUESTIONS/CONCERNS ADDRESSED AT THIS TIME. ENDORSING ALL CARE
--- NOTE | 2019-04-24 07:10 | NUR ---
PROPOFOL ON HOLD FOR SEDATION VACATION.
--- NOTE | 2019-04-24 07:40 | NUR ---
PROPOFOL RESUMED AT 5MCG/KG/MIN BECAUSE THE PATIENT START TO MOVE HIS HANDS TOWARD TUBE/LINE, AND HEART RATES INCREASE TO 110S. PATIENT OPENS HIS EYES TO VERBAL STIMULI BUT UNABLE TO FOLLOW ANY SIMPLE COMMANDS. BHUPINDER PUPILS WITH SLUGGISHED REACTION 4MM TO LIGHT. ETT 7.5 SECURED AT 26CM AT LIPLINE. ETT TO VENT VIA VCV/AC MODE: FIO2 30%, RATE 13, VT 420, PEEP 5. GAG REFLEX PRESENTS. OGT IN PLACE AND SECURED TO ETT. OGT PLACEMENT VERIFIED WITH SOME AIR BOLUS. NO RESIDUAL. TUBE FEEDING WITH GLUCERNA AT 55ML/HR. FLUSHED WITH WATER 100ML EVERY 4HR. CVC TO RIJ WITH DRESSING IN PLACE. CVP 8. 3 PORTS IN USE. D10 AT 60CC/HR. [place] CATH TO GRAVITY DRAINING YELLOW URINE. PATIENT IS ON AIR MATTRESS; HEEL PROTECTORS IN PLACE. BED IS AT LOWEST POSITION. ALARM IS ON. HEAD OF BED AND BLE ELEVATED.
--- NOTE | 2019-04-24 08:00 | NUR ---
TUBE FEEDING RATE INCREASED FROM 55CC/HR TO 60CC/HR TO REACH THE GOAL.
--- NOTE | 2019-04-24 09:35 | NUR ---
DR. SHAH IS AT BEDSIDE UPDATE THE PLAN OF CARE TO BOTH SISTERS AT BEDSIDE.
--- NOTE | 2019-04-24 10:15 | NUR ---
CANDICE ALLEN IS AT BEDSIDE SEEING THE PATIENT AND TALKING TO THE PATIENT'S SISTERS.
--- NOTE | 2019-04-24 11:00 | NUR ---
NEW FORMULA JEVITY 1.2 AND TUBING CHANGED FOR THE PATIENT WITH THE SAME RATE OF 60CC/HR. AND FLUSHED WATER 100ML EVERY 4HR.
--- NOTE | 2019-04-24 11:33 | NUR ---
DR. MONROY IS AT BEDSIDE AND CHANGES THE VENT SETTING FROM VCV/AC MODE TO CPAP AT 25%, PEEP 5 AND PSV 8. PROPOFOL WAS TURNED OFF BY DR. MONROY.
--- NOTE | 2019-04-24 11:45 | NUR ---
DR. MONROY TITRATED PSV FROM 8 TO 10 ON CPAP MODE.
--- NOTE | 2019-04-24 12:30 | NUR ---
THE PATIENT IS TIRED AND UNABLE TO BREATH WELL; VENT MACHINE ALARMING WITH APNEA. THE MODE WAS SWITCHED BACK TO VCV/AC MODE WITH FIO2 25%. RT VALDEZ WAS MADE AWARE AND AGREED WITH THAT.
--- NOTE | 2019-04-24 14:13 | NUR ---
RT VALDEZ IS AT BEDSIDE CHANGING AC MODE TO CPAP MODE 10/5 AND FIO2 25%.
--- NOTE | 2019-04-24 15:10 | NUR ---
PATIENT PASSED GAS WHEN BED BATH PROVIDED TO THE PATIENT. DRESSING AT CENTRAL LINE SITE WAS CHANGED WITH ASEPTIC TECHNIQUE BECAUSE THE OLD DRESSING CAME OFF. [place] CARE PROVIDED TO THE PATIENT WITH BED BATH.
--- NOTE | 2019-04-24 16:12 | NUR ---
RT COURTNEY CHANGED CPAP MODE BACK TO VCV/AC MODE: 25% FIO2, RATE 13, VT 420, AND PEEP 5.
--- NOTE | 2019-04-24 16:51 | NUR ---
BS. CHECKED VIA FINGER STICK 192; PER DR. STREET, NO COVERAGE NEEDED AT THIS TIME. CONTINUE TO CHECK BS. ACHS TONIGHT.
--- NOTE | 2019-04-24 19:00 | NUR ---
PATIENT REMAINS ON VENT VIA VCV/AC MODE: FIO2 25%, RATE 13, VT 420, AND PEEP 5 WITH NO SEDATION. PATIENT TOLERATED WITH TUBE FEEDING OF JEVITY 1.2 AT 60CC/HR DURING THE SHIFT. REPORT WAS GIVEN TO LINDA FERNANDEZ RN. CONCERNS ADDRESSED.
--- NOTE | 2019-04-24 19:05 | NUR ---
REPORT RECIEVED FROM LASHELL MORRIS. NURSING UPDATES. ALL CONCERNS ADDRESSED.
--- NOTE | 2019-04-24 19:20 | NUR ---
ELECTROMECHANICAL ASSEMBLY TECHNICIAN @ BEDSIDE.
--- NOTE | 2019-04-24 19:40 | NUR ---
RADIOLOGY PAGED FOR CT HEAD AND RT CHAGO MADE AWARE. AWAITING TEAM.
--- NOTE | 2019-04-24 20:00 | NUR ---
ACCOMPANIED PT TO CT HEAD W/O CONTRACT. RT CHAGO, CT TEAM MEMBERS ACCOMPANIED PT WELL. CT HEAD W/O CONTRACT TAKEN AND PT RETURNED TO ICU BED 3 W/ NO ACUTE CHANGES. AWAITING RESULTS.
--- NOTE | 2019-04-24 21:08 | NUR ---
DR HOPE NOTIFIED OF BLOOD SUGAR 223 AND D10 STILL INFUSING. SUGGESTED D/C THE D/10 TO D5 OR N/S AWAITING NEW ORDERS.
--- NOTE | 2019-04-24 23:45 | NUR ---
PT TRANSERED TO ICU BED 4 ACCOMPANIED BY DAIRY BAR MANAGERMAXINE HAYNES. SEE SHIFT ASSESSMENT.
[2019-04-25] VITALS (17 sets, daily range): BP systolic 91–153; BP diastolic 35–83
--- NOTE | 2019-04-25 | NUR ---
DR JOSEPH @ BEDSIDE. NURSING UPDATES. POC DISCUSSED. NO NEW ORDERS @ THIS TIME.
--- NOTE | 2019-04-25 00:51 | NUR ---
PT FINISHED FIRST PRBC 300ML BAG. NO ADVERSE REACTION. PT VITALS TEMP 97.6, HR 85, BP 140/73, RR 11, O2 SAT 100%. NO ACUTE SIGNS OF DISTRESS.
--- NOTE | 2019-04-25 02:00 | NUR ---
NO ACUTE CHANGES. PT NOT SEDATED. PT RESTING CALMLY IN BED. WILL CONT TO MONITOR.
--- NOTE | 2019-04-25 04:49 | NUR ---
PT W/ FIRST SIGN OF MOMENT. BENDING OF L KNEE. PT STILL UNABLE TO FOLLOW COMMANDS AND [employer] 5. WILL CONT TO MONITOR.
[2019-04-25 05:42] LABS: CALCIUM 8.7 mg/dL (8.5-10.1); CARBON DIOXIDE 32.8 mmol/L (21-32); CHLORIDE SERUM 99 mmol/L (98-107); CREATININE SERUM 0.8 mg/dL (0.7-1.3); GFR1 > 60 mL/min; GLUCOSE SERUM 234 mg/dL (74-106); POTASSIUM SERUM 3.1 mmol/L (3.5-5.1); SODIUM SERUM 129 mmol/L (136-145)
[2019-04-25 05:45] LABS: BASOPHIL % 1.4 % (0-2); PLATELET COUNT 291 x10^3mcL (130-400); RED CELL DISTRIBUTION WIDTH 14.9 % (11.5-14.5)
--- NOTE | 2019-04-25 05:45 | NUR ---
DR TURK NOTIFIED OF K+ 3.1. AWAITING ORDERS.
--- NOTE | 2019-04-25 05:55 | NUR ---
MARY CALLED SISTER TO PT. NURSING UPDATES. POC DISCUSSED.
--- NOTE | 2019-04-25 06:48 | NUR ---
DR STREET @ BEDSIDE. NURSING UPDATES. AWAITING ORDERS.
--- NOTE | 2019-04-25 07:09 | NUR ---
REPORT GIVEN TO ARTURO LOBO. NURSING UPDATES. POC DISCUSSED. RELIEVED OF PT DUTIES.
--- NOTE | 2019-04-25 07:45 | NUR ---
PATIENT REMAINS INTUBATED WITH NO SEDATION. PATIENT ONLY FROWNS LITTLE TO TACTILE STIMULI; UNABLE TO FOLLOW ANY SIMPLE COMMANDS. PATIENT HAS INVOLUNTARY EYE MOVENENT BUT BOTH PUPILS DO NOT REACT TO LIGHT. ALSO INVOLUNTARY MOVEMENT TO RUE AND LLE. ETT TO VENT VIA VCV/AC MODE: FIO2 25%,RATE 13, VT 420 AND PEEP 5. OGT TO TUBE FEEDING WITH JEVITY AT 60ML/HR AND FLUSHED WITH WATER 100ML SHAWN 4HR. NO RESIDUAL. OGT PLACEMENT VERIFIED WITH SOME AIR BOLUS. ORAL CARE PROVIDED TO THE PATIENT. RIJ CVC WITH DRESSING INTACT. NS AT 70CC/HR. TELE # 3 READS SINUS TACHYCARDIA. MU[place] TO GRAVITY DRAINING YELLOW URINE. HEEL PROTECTORS TO BOTH HEELS. PAITENT IS ON ISOGEL MATTRESS. BED IS AT LOWEST POSITION. HEAD OF BED ELEVATED. SIDE RAILS UPX 3.
--- NOTE | 2019-04-25 08:17 | NUR ---
DR. MONROY IS AT BEDSIDE EXAMING THE PATIENT. UPDATE PROVIDED TO THE DOCTOR. ASLO, DOCTOR IS AWARE OF THE CT HEAD RESULT.
--- NOTE | 2019-04-25 08:20 | NUR ---
PROVIDED UPDATES OF PT SATUS, CT HEAD RESULTS, LABS TO DR. MONROY AT BEDSIDE. DR. MONROY ASSESS PT AT BEDSIDE AND UPDATED PLAN OF CARE, PER DR. MONROY IF PT DOES NOT WAKE UP, PT NEEDS A NEURO, MADE AWARE TO LLUVAI.
--- NOTE | 2019-04-25 08:29 | NUR ---
DR. MONROY CHANGED THE VCV/AC MODE TO CPAP MODE 10/5 AND FIO2 25%.
--- NOTE | 2019-04-25 08:45 | NUR ---
DR. MONROY TALKED TO THE PATIENT'S SISTER VIRGILIO THROUGH THE PHONE AND UPDATING HER OF THE PATIENT'S STATUS.
--- NOTE | 2019-04-25 09:31 | NUR ---
PROVIDED UPDATES TO DR. STREET AND LLUVIA HARVEY. PER LLUVIA WET END HELPER, PT IS TO BE TRANSFER BACK TO [facility] [place], [place]. DR. JAD CORREIA LEVEL, D/C PROPOFOL.
--- NOTE | 2019-04-25 09:45 | NUR ---
PROVIDED UPDATES TO DR. SHAH OF LABS AND CT HEAD RESULTS. RECIEVED NO NEW ORDERS.
--- NOTE | 2019-04-25 09:50 | NUR ---
DR. SHAH EXPLAINED TO PT INDICATION, BENITIFITS AND RISKS OF MESERET CATH FOR HD. PT VERBALIZED UNDERSTANDING AND IS AWARE SHE NEEDS THE CATH FOR HD. PT DID NOT HAVE ANY QUESTIONS OR CONCERNS.
--- NOTE | 2019-04-25 10:30 | NUR ---
NEW TUBE FEEDING BOTTLE AND TUBING WERE CHANGED FOR THE PATIENT.
[2019-04-25] MEDS ORDERED: VANCO 1 GR1 GM/150 M IV (11:02)
[2019-04-25] MEDS ORDERED: AMERINET CHOICE1 PD3 IV (11:02)
--- NOTE | 2019-04-25 13:22 | NUR ---
Follow-up Nutrition Assessment: IC03/A KASEY PRETTY MR Dx: Infected G-tube, sepsis PMHx: not documented Labs: (04/25) K 3.1L, BG 234H, WBC 15.8H, Meds: Colace, D10%, humulin, Lipitor, lotensin, pecid, heparin Diet: Jevity 1.2 @ 60ml/hr TF Intake: 1341 ml Weights: 60 kg Skin: optifoam to sacral area Lloyd: 11 I/Os: (04/25) [id number] (-[id number]) Edema: none GI: Last BM: 04/21 RDN visit (04/25): patient was intubated and was on ventilator. Patient was receiving Jevity 1.2 @ 60ml/hr. Per RN, Pt is tolerating TF without any residuals. RN mentioned that Glucerna 1.2 was changed to Jevity by as pt's blood sugar dropped drastically. Pt is currently receiving D10%. Estimated Nutritional Needs Based on actual body weight 60.3 kg Energy: 0362-3519 vs 1432 kcal/d (30-35 kcal/kg vs [place] [employer] Equation (PSU) 2003b ) Protein: 60-72 g/d (1.0-1.2 g/kg)-maintenance and preservation of lean body mass Fluid: 4569-8859 ml/d (1 ml/kcal-fluid balance) or per doctor Nutrition Diagnosis 1. Unintentional weight loss related to frequent hospitalizations as evidenced by self-reported weight loss of >10# in 1 month. (ongoing) Intervention 1. Recommend Glucerna 1.2 @ 30ml/hr, goal 60ml/hr, advance 10ml Q4H. FWF 100ml Q6H. Goal rate will provide 1728 kcal and 86g protein. This meet >75% of estimated calorie and protein needs. Monitor/Evaluate Goal: Have pt meet at least 75% of estimated needs (not met) Monitor: TF intake/tolerance, Labs, GI function F/U in 2-3 days as high risk 04/27-04/28
--- NOTE | 2019-04-25 17:50 | NUR ---
PATIENT WAS GIVEN A BED BATH; TOTAL CARE INCLUDING CENTRAL LINE AND F/C PROVIDED TO THE PATIENT.
--- NOTE | 2019-04-25 18:22 | NUR ---
PRISCILLA, RT AT BEDSIDE AND SWITCHING THE CPAP MODE BACK TO AC MODE: FIO2 25%, RATE 13, VT 420, PEEP 5.
--- NOTE | 2019-04-25 19:15 | NUR ---
REPORT RECIEVED FROM LASHELL PETERSON. ALL CONCERNS ADDRESSED. NURSING UPDATES. POC DISCUSSED. RESUMED CARE OF PT SEE SHIFT ASSESSMENT.
--- NOTE | 2019-04-25 19:25 | NUR ---
PATIENT REMAINS ON VENT VIA VCV/AC MODE: FIO2 25%, RATE 13, VT 420, PEEP 5. REPORT WAS GIVEN TO LINDA FERNANDEZ RN. CONCERNS WERE ADDRESSED.
--- NOTE | 2019-04-25 19:30 | NUR ---
NOTIFIED BY MICHELE FOR TRANSFER TO [facility] [place] AND TRANSPORT TEAM COMING @ 2029.
--- NOTE | 2019-04-25 20:17 | NUR ---
REPORT GIVE TO LASHELL JASON @ [facility] [place] ROOM 5732. [phone]. ALL CONCERNS ADDESSED. AWAITING TRANSPORT.
--- NOTE | 2019-04-25 21:10 | NUR ---
TRANSPORT TEAM @ BEDSIDE. 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
--- NOTE | 2019-04-25 21:26 | NUR ---
PT DISCHARGED W/ CANDIDO JAIN. VITALS HR 104, BP 107/69(83), RR 18, O2 SAT 100%, TEMP 98.5. ALL CONCERNS ADDRESSED. RELIEVED OF PT DUTIES.
== END 2019-04-25 21:24 | disposition short-term general hospital (02) | DRG 871 ==
LOC: ED 13:16 → DU 15:29 → IC 15:29 → DU 16:50 → MU 04-21 11:46 → IC 04-23 05:56
PROVIDERS: Emergency Medicine; Internal Medicine; Internal Medicine Gastroenterology; ADMIT General Practice
PROC: 0BH17EZ Insertion of Endotracheal Airway into Trachea, Via Natural or Artificial Opening (ICD-10-PCS; principal; 2019-04-23)
PROC: 5A1945Z Respiratory Ventilation, 24-96 Consecutive Hours (ICD-10-PCS; 2019-04-23)
PROC: 05HM33Z Insertion of Infusion Device into Right Internal Jugular Vein, Percutaneous Approach (ICD-10-PCS; 2019-04-23)
DX: A41.9 Sepsis, unspecified organism (principal); J96.01 Acute respiratory failure with hypoxia; E43 Unspecified severe protein-calorie malnutrition; G93.41 Metabolic encephalopathy; J69.0 Pneumonitis due to inhalation of food and vomit; K94.22 Gastrostomy infection; L03.311 Cellulitis of abdominal wall; M86.9 Osteomyelitis, unspecified; E11.649 Type 2 diabetes mellitus with hypoglycemia without coma; I95.9 Hypotension, unspecified; H70.90 Unspecified mastoiditis, unspecified ear; J44.9 Chronic obstructive pulmonary disease, unspecified; I10 Essential (primary) hypertension; E78.5 Hyperlipidemia, unspecified; Z68.20 Body mass index [BMI] 20.0-20.9, adult; Z79.82 Long term (current) use of aspirin; Z79.891 Long term (current) use of opiate analgesic; Z79.84 Long term (current) use of oral hypoglycemic drugs; Z86.73 Personal history of transient ischemic attack (TIA), and cerebral infarction without residual deficits; Y83.3 Surgical operation with formation of external stoma as the cause of abnormal reaction of the patient, or of later complication, without mention of misadventure at the time of the procedure; Y73.2 Prosthetic and other implants, materials and accessory gastroenterology and urology devices associated with adverse incidents; Y92.129 Unspecified place in nursing home as the place of occurrence of the external cause
CPT/HCPCS: 36556; 36600; 78226; 82962; 85060; 92526-GN; 92610; A4628; A9537; B4164; J0330; J1450; J1610; J1644; J1815; J1885; J2543; J2704; J3370; J3480; J3490; J7030; J7040; J7050; Q0092; Q9967